=== PATIENT | female | born 1970 ===

== ENCOUNTER 2025-08-29 10:19 | Outpatient (CLI) | payer BC, SELFPAY | END 2025-08-29 10:20 | disposition home or self-care (01) | LOC: LBO 10:20 | PROVIDERS: PCP Internal Medicine Hematology & Oncology; Visit Provider Internal Medicine Hematology & Oncology | DX: C91.10 Chronic lymphocytic leukemia of B-cell type not having achieved remission (principal) | CPT/HCPCS: 36415; 88237; 88271; 88275; 88291 ==